=== PATIENT | male | born 1975 | race American Indian/Alaskan Native ===

== ENCOUNTER 2018-11-23 20:14 | Emergency (ER) | payer BC, OTHER ==
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
[2018-11-23] MEDS ORDERED: PERCOCET 5/325 PO ONE (23:05)
[2018-11-23] MEDS ORDERED: IBUPROFEN PO ONE (23:05)
[2018-11-23] MEDS ORDERED: ZOFRAN ODT PO ONE (23:05)
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
[2018-11-24 01:28] VITALS: BP 150/88
== END 2018-11-24 01:29 | disposition home or self-care (01) ==
LOC: ED 20:14
DX: M62.830 Muscle spasm of back (principal); M54.2 Cervicalgia; I10 Essential (primary) hypertension; Z98.890 Other specified postprocedural states; Z79.899 Other long term (current) drug therapy; V89.2XXA Person injured in unspecified motor-vehicle accident, traffic, initial encounter; Y93.89 Activity, other specified; Y92.488 Other paved roadways as the place of occurrence of the external cause; Y99.8 Other external cause status
CPT/HCPCS: 72040; 72100; 99283; Q0162